=== PATIENT | female | born 1960 | race Two or more races ===

== ENCOUNTER → 2024-09-26 | Outpatient (CLI) | payer OTHER, SELFPAY ==
--- NOTE | 2024-09-26 14:58 | XR_ITS ---
Examination: Sinus series 4 views TECHNIQUE: Debra hill submentovertex sinus series 4 views Exam date and time: September 26, 2024 1522 hours INDICATIONS: Sinus pressure and pain nasal drip one month. FINDINGS: Significant opacification in the frontal ethmoid air cells Large retention cysts and mucosal disease in the maxillary antra Haziness in the sphenoid air cells IMPRESSION: Significant chronic pansinusitis Significant hypertrophy inferior nasal turbinates
== END | disposition home or self-care (01) ==
PROVIDERS: PCP Internal Medicine; Referring Provider Internal Medicine; Visit Provider Internal Medicine
DX: J32.4 Chronic pansinusitis (principal); J34.3 Hypertrophy of nasal turbinates
CPT/HCPCS: 70220

== ENCOUNTER → 2025-05-21 | Outpatient (CLI) | payer OTHER, SELFPAY ==
--- NOTE | 2025-05-21 09:17 | XR_ITS ---
Examination: PA lateral chest 2 views TECHNIQUE: Upright PA lateral chest 2 views Date and time: May 21, 2025 0926 hours INDICATIONS: Coughing beginning 2 months ago. FINDINGS: Normal heart size. Lungs are clear. The osseous structures are intact IMPRESSION: No active disease.
== END | disposition home or self-care (01) ==
LOC: CDIM 09:10 → SDIM 09:22
PROVIDERS: PCP Internal Medicine; Referring Provider Internal Medicine; Visit Provider Internal Medicine
DX: R05.2 Subacute cough (principal)
CPT/HCPCS: 71046

== ENCOUNTER 2025-08-26 09:48 | Outpatient (AMB) | payer OTHER, SELFPAY ==
[2025-08-26 10:08] VITALS: BP 133/82; PULSE 82; RESP 16; TEMP 36.6; O2SAT 96; BMI 33.0
--- NOTE | 2025-08-26 10:09 | GYNCLNT_ITS ---
Vital Signs 08/26/25 10:08 08/26/25 10:11 Height 1.63 m Height Method Stated Weight 87.203 kg Weight Measurement Method Standing Scale BMI 33.0 BP 133/82 H 133/82 H Blood Pressure Source Automatic Cuff Blood Pressure Location Left Upper Arm Position Sitting Respiration 16 16 Pulse 82 82 Pulse Source Monitor Temp 98 F 98 F Temp Source Oral Pulse Oximetry (%) 96 96 Oxygen Delivery Method Room Air Allergies/Home Meds Allergies & Medications Allergies No Known Allergies Allergy (Verified 08/26/25 10:09) Medication Reconciliation gemfibrozil 600 mg tablet 1 tab PO EVERYOTHERDAY 04/01/22 [History Confirmed 08/26/25] Intake Visit Data Collection New Patient or Established: Established Patient (seen at [facility] within 3 years) Reason for Visit:: BURNING IN BREAST - 2ND OPINION Seen by Clinical Staff ONLY (RN/MA): No Hi Ranger Operator Required: No Do You Feel Safe at Home: Yes Authorities Contacted: N/A PCP or OBGYN visit in last 3 months: Yes Hx Now: No Are you currently on any form of Control: No Pain Present Currently: No Pain Scale Used: Foley-Sin/Numerical Pain scale:: 0 Smoking Status Smoking Status: Never smoker Immunizations Flu Vaccine in the Last 12 Months: Yes Flu Vaccine Exclusion Criteria: Already Received 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 Menstrual regularity: irregular Flow: heavy Monthly: No How many days does period last: 8 Age at menarche: 11 Menopausal: Yes If menopausal, at what age did it occur: 47 Currently sexually active: Yes 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 1. Little interest or pleasure in doing things: not at all 2. Feeling down, depressed, or hopeless: not at all Total score: 0 PHQ-9 3. Trouble falling or staying asleep, or sleeping too much: Not at all 4. Feeling tired or having little energy: Not at all 5. Poor appetite or overeating: Not at all 6. Feeling bad about yourself - or that you are a failure or have let yourself or your family down: Not at all 7. Trouble concentrating on things, such as reading the newspaper or watching television: Not at all 8. Moving or speaking so slowly that other people could have noticed? - Or the opposite - being so fidgety or restless that you have been moving around a lot more than usual: not at all 9. Thoughts that you would be better off or of hurting yourself in some way: Not at all Total score: 0 Source: Developed by Drs. Sean Guillory, Cira Quiroz, Willie Garay and colleagues, with an educational reji from [employer]. Depression screen completed yes Social History Living Situation History Marital Status: Lives With: Spouse Housing: House Tobacco History Smoking Status: Never smoker Second Hand Smoke Exposure: No Alcohol History Alcohol Intake: Current Domestic Abuse History Do You Feel Safe at Home: Yes History of Present Illness HPI Narrative Breast pain for 3-4 months, primarily right-sided, described as throbbing and poking sensations Brielle Garcia presents with breast pain that has been ongoing for approximately 3-4 months. The pain is primarily located on the right breast, though she occ asionally experiences some discomfort on the left side as well. She describes the pain as variable in character, sometimes feeling like throbbing, other times like a little poke or sharp sensation. The pain is intermittent rather than constant. The patient has a history of a metal marker or stent placed in her right breast in 2007, which has been in place for approximately 17 years. 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 She is postmenopausal for approximately 10 years or more. She initially consulted with her primary care physician, Dr. Stafford, who attributed the symptoms to hormonal changes. The patient had a mammogram performed in January or February of this year, which showed normal results with no abnormalities detected. Despite the normal mammogram, she continues to experience the intermittent breast pain. The patient also reports that at nighttime when she wakes up to use the restroom, she notices her breasts feel different - not swollen or hard, but somehow changed from their usual state. Medical History: - Fibroadenomas diagnosed approximately 30 years ago during - Menopause for approximately 10 years or more Surgical History: - Breast biopsy with marker/clip placement in 2007 Obstetric History: - Patient mentions having children, with her last child born 30 years ago Exam Narrative Physical exam: - Breast: Bilateral breast examination performed. Small nodular area palpated on the right breast in the area where patient indicated pain. No abnormal masses felt otherwise. No lymphadenopathy palpated. Office Procedures [facility] LOC & Office Proc's Nursing/Assessment Patient Status: Established Patient OB Clinic Nursing Assessment: Medication Reconciliation, Update PMH in EMR and Vital Signs OB Clinic Coordination of Care: Complex Care and Chronic Disease 1-5, Consent,records obtained, informed consent, Education Simp Pt/Fam, Lab and Imaging orders, Results/Orders obtained and Staff clarify orders Established Patient Charge Established Patient Point Assignment: 105 Established Patient Point Charge: EP Level 3 (80-115) Assessment & Plan Diagnosis / Problem List (1) Bilateral breast cysts: Status: Acute (2) Mastodynia: Status: Acute Plan Breast pain Assessment: Patient reports 3-4 months of intermittent breast pain described as throbbing or poking sensation, predominantly affecting the right breast. She has a metal marker placed in the right breast in 2007. Recent mammogram in January-February was normal. Physical examination reveals a small nodular area in the right breast at the site of patient's pain complaint. Given her postmenopausal status for over 10 years and history of fibroadenomas, the pain may be related to capsular stretching as fibroadenomas shrink with decreased hormonal stimulation. The metal marker could potentially be contributing to discomfort. No abnormal lymph nodes palpated. Plan: - Order bilateral breast ultrasound to evaluate soft tissue structures and assess metal marker position - Ultrasound scheduling information to be provided by staff - Send consultation note to Dr. Stafford (primary care physician) History of fibroadenomas Assessment: Patient has known history of fibroadenomas diagnosed 30 years ago during . These benign lesions are present in 50-60% of women and typically shrink after menopause due to decreased hormonal stimulation. Patient is postmenopausal for over 10 years, which supports the likelihood that existing fibroadenomas are involuting and may be causing capsular stretching pain. Plan: - Bilateral breast ultrasound will evaluate current status of fibroadenomas Advanced Care Planning Advance care planning discussed with:: patient
[2025-08-26 10:11] VITALS: BP 133/82; PULSE 82; RESP 16; TEMP 36.6; O2SAT 96
== END 2025-08-26 10:27 | disposition home or self-care (01) ==
LOC: HODSOBC 09:48
PROVIDERS: PCP Internal Medicine; Referring Provider Internal Medicine; Supervising Provider Obstetrics & Gynecology; Visit Provider Obstetrics & Gynecology
DX: N60.02 Solitary cyst of left breast (principal); N60.01 Solitary cyst of right breast; N64.4 Mastodynia; Z78.0 Asymptomatic menopausal state
CPT/HCPCS: 99213; G0463

== ENCOUNTER → 2025-08-27 | Outpatient (CLI) | payer OTHER, SELFPAY ==
--- NOTE | 2025-08-27 14:19 | XR_ITS ---
Examination: Breast ultrasound complete, bilateral Date and time of exam: August 27, 2025, 1443 hours INDICATIONS: Palpable lump outer right breast noticed beginning 1 month ago Technique: Real-time grayscale ultrasonographic imaging bilateral breasts, including all 4 quadrants as well as nipple retroareolar and axillary regions. Findings: Sonographic images right and left breast demonstrate no cystic or solid masses IMPRESSION: BI-RADS Category 1: Negative study
== END | disposition home or self-care (01) ==
LOC: CDIM 14:05
PROVIDERS: PCP Internal Medicine; Referring Provider Internal Medicine; Visit Provider Obstetrics & Gynecology
DX: N60.01 Solitary cyst of right breast (principal); N60.02 Solitary cyst of left breast
CPT/HCPCS: 76641